=== PATIENT | male | born 1990 | race Caucasian/White ===

== ENCOUNTER 2016-10-13 14:32 | Emergency (ER) | payer OTHER ==
[~2016-10-13] VITALS: Ht 182.9 cm; Wt 84.1 kg
[2016-10-13 14:35] VITALS: BP 156/79; PULSE 64; RESP 20; O2SAT 100
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
--- NOTE | 2016-10-13 19:15 | DRSVH ---
PROCEDURE: CT BRAIN WITHOUT CONTRAST ([id number]) INDICATIONS: head trauma, headache TECHNIQUE: Noncontrast 4.5 mm thick angled axial sections acquired from the foramen magnum to the vertex, with c oronal reformats. COMPARISON: None. FINDINGS: Image quality: Excellent. CSF spaces: Basal cisterns are patent. No extra-axial fluid collections. Ventricles are normal in size and shape. Brain: No midline shift. Acute intraparenchymal hemorrhage is seen within the anterior right frontal lobe, measuring approximately 1.9 cm diameter.. Muro-white matter interface is normal. Skull and face: There is a nondepressed midline occipital skull fracture extending to the right condy le There is a large posterior scalp hematoma and soft tissue swelling, with skin chaz Sinuses: Visualized sinuses and mastoids are clear. IMPRESSION: Acute intraparenchymal hemorrhage involving the right frontal lobe. Large posterior scalp hematoma, with underlying midline occipital skull fracture Critical findings were immediately and personally telephoned to Dr. Truong in the emergency departme nt 1913 hrs. 10/13/16 Dictated by: Roberto Morrison M.D. on 10/13/2016 at 19:04 Approved by: Roberto Morrison M.D. on 10/13/2016 at 19:14
[2016-10-13] MEDS ORDERED: HYDROmorphone 0.5 mg/0.5 mL iSecure Syringe IVPUSH ONE (20:00)
[2016-10-13] MEDS ORDERED: Ondansetron 2 mg/mL 2 mL Inj ONE (20:04)
[2016-10-13 20:17] VITALS: BP 125/71; PULSE 60; RESP 15; O2SAT 99
== END 2016-10-13 20:18 | disposition short-term general hospital (02) ==
LOC: SED 14:32
DX: S02.91XD Unspecified fracture of skull, subsequent encounter for fracture with routine healing (principal); S06.2X0D Diffuse traumatic brain injury without loss of consciousness, subsequent encounter; S00.83XD Contusion of other part of head, subsequent encounter; F10.129 Alcohol abuse with intoxication, unspecified; Y04.0XXD Assault by unarmed brawl or fight, subsequent encounter; Y93.89 Activity, other specified; Y92.9 Unspecified place or not applicable; Y99.9 Unspecified external cause status
CPT/HCPCS: 70450; 96374; 96375; 99285; J1170; J2405